=== PATIENT | female | born 1985 ===

== ENCOUNTER 2021-02-20 08:15 | Outpatient (RCR) | payer OTHER, SELFPAY ==
--- NOTE | 2021-01-28 12:59 | P.HPPSP_ITS ---
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 The patient reported a long history of depression since she was 5, with a prior admission as a teenager and later when she was 19 for suicidal attempt while intoxicated on alcohol. She complaints of episodes of depression characterized by depressed mood, anhedonia, lack of energy and feelings of worthlesness and sporadic episodes of increased restlesness and poor need of sleep but not over hypomania. Currently, she reported feeling more anxious with the current medications but no safety concerns.. Past Psychiatric History: As described on HPI, 1 prior admission as a teenager and at the age of 19. Follows outpatient services. Medical Evaluation Reviewed: No [facility] Medical History Arthritis Bone spur Bursitis Fibromyalgia Gestational diabetes Herniated disc PCOS (polycystic ovarian syndrome) Septal defect, heart Torn rotator cuff Family History: Mother had depression. Father had bipolar disorder. Social History: No biological siblings, her milestones were achieved at expected age, she was raised by her family and she had a good childhood, besides alleged trauma. She had poor school performance, later got her GED. She has alcohol problems since age 11 to 19 Substance History: Alcohol as described before as a teenager. She claims to be clean and sober for the last years Trauma History: as a child, not elaborated Meds/Allergies Allergies Allergies Allergy/AdvReac Type Severity Reaction Status Date / Time lactose Allergy Gastrointestinal Verified 01/28/21 13:04 Upset nortriptyline AdvReac Unknown Verified 01/28/21 13:04 Mental Status Exam Mental Status Exam Patient Appearance: Well Grooomed Patient Orientation: Person, Place, Time and Situation Level of Consciousness: Awake and Appropriate Patient Behavior: Appropriate Mood Description: Calm Affect Description: Appropriate Patient Cognition Impaired: No Ability to Follow Directions: Good Speech Pattern: Clear Memory Description: Intact Hallucinations: None Delusions: Not Present Thought Content: positive for Intact Depressive Symptoms: Increased Anxiety Judgement: Fair Assessment & Plan Assessment & Plan (1) Mood disorder: Status: Acute Code(s): F39 - Unspecified mood [affective] disorder Assessment and Plan: The patient is an adult female, on her last trimester with mood disorder and a remote history of alcohol use disorder, stable at this moment. Plan: Continue same treatment Certification I certify that partial hospital treatment is medically necessary due to the symptoms and problems resulting from the patient's mental illness and the failure to treat the patient at the partial hospital level of care would likely result in the patient requiring inpatient psychiatric care which could not be prevented at a less intensive level of care. Telehealth Telehealth Location of provider rendering services: practice address Location of patient: address on file Patient Identification confirmed using: Name, : Yes Telehealth method: video Patient verbally consented to treatment: Yes Patient verbally consented to billing insurance company: Yes Patient informed of any privacy concerns related to visit: No Time spent with patient (mins): 45
[2021-01-28 13:06] VITALS: BMI 49.4
--- NOTE | 2021-01-28 14:02 | PC.ADMIT ---
Patient is a 35 year old female who was referred to [facility] IOP by a spring encaser at [facility] where patient was previously admitted as patient is stepping down to a lower level of care for treatment. Patient is 8 months and reports increase in depression with passive SI (no plan or intent), increase in anxiety with panic attacks secondary to inability to cope with . Patient reports she has taken a KIMBERLY from her job d/t symptoms. Patient has a history of being in therapy starting at age 4. She reports history of inpatient hospitalizations and SA via overdose at ages 10, 12, 15, and 19. Patient also reports she has been diagnosed with gestational diabetes and was put on ASA as a preventative measure for pre-eclampsia. Patient reports that her OBGYN is aware of the medications she is currently prescribed. Patient also reports recent diagnosis of sleep apnea and has a c-pap machine which she is trying to get used to. Patient reports history of ETOH abuse however has been sober for 10 years. Patient reports trauma history. Patient identifies her , family and friends as supportive. Patient is alert and oriented x4. Presents with depressed mood, anxious affect. Denied SI at present. Patient gave verbal permission to email her a copy of her safety plan. She has the crisis numbers if needed. Patient reports taking medications as prescribed. Reports that [facility] put in the prescription wrong as she is suppose to take Seroquel 200 mg tab taking 1 and 1/2 tab (300 mg) at HS and will take an additional 100 mg PRN at HS for insomnia. Medications reconciled with patient and pharmacy. Will request records from [facility].
--- NOTE | 2021-02-04 08:38 | PC.NURSE ---
Received a message from pt from early this morning stating she again did not get any sleep last night. She asked if she would be able to see the med provider today. I then got a second message from pt saying she is going to try to get some sleep, and that if she doesn't show up, it means she is sleeping and that she is okay. I shared this with staff.
--- NOTE | 2021-02-05 14:10 | HO.PHPPROGNO ---
Subjective Subjective Date of Service: 02/05/21 Reason For Visit: Generalized Anxiety D/O, MDD Subjective Notes: Law Warning Medical Problems Affecting Mental Status: Yes (33 weeks , insomnia, which is contributing to anxiety sx. ) Interim History: Jaden reports that she is feeling fatigued, and finds herself dissociating due to being overtired . Reports feeling anxious. She reports that she is experiencing intrusive thoughts due to exhaustion and anxiety. Denies any safety concerns. She is taking multiple medications including celexa, vistaril, trazodone, Seroquel, clonidine. She is requesting an increase in Seroquel dose in order to help her fall asleep and stop intrusive thoughts. She reports that when she had an increase in Seroquel does fairly recently, it did help improve sleep and decrease anxiety /intrusive thoughts. A review of medications was completed with patient. She reports that since the Klonopin had been tapered down and discontinued, she has had some anxiety. She states this has increased as her has proceeded, and became more pronounced at 24 weeks gestation. She states that she had also been tapered down from Seroquel, and had been been taking 50 mg daily at 1 point. She reports that an outside provider had increased Seroquel to the 300 at bedtime with an additional 100 to be used if waking and unable to fall asleep later in the night. She states that this did help control symptoms for some time, but now she is feeling that her symptoms have been worsening. Medication Compliance: Yes Side effects from medications: No Attending Groups: Yes Review of Systems Constitutional: Reports difficulty sleeping ( Difficulty falling asleep and then staying asleep throughout the night.), Reports fatigue and Reports stops breathing during sleep ( Sleep apnea, recently began using CPAP. ) Eyes: Reports no additional eye complaints Reports Normal hearing present Cardiovascular: Reports no additional cardiovascular complaints Respiratory: Reports no additional respiratory complaints Reports Normal hearing present Psychiatric: Reports anxiety and Reports depression Endocrine: Reports fatigue Mental Status Exam Mental Status Exam Patient Appearance: Fatigued and Appropriate Patient Orientation: Person, Place, Time and Situation Level of Consciousness: Awake and Appropriate Patient Behavior: Appropriate and Cooperative Mood Description: Appropriate, Depressed and Anxious Affect Description: Appropriate and Anxious Patient Cognition Impaired: No Ability to Follow Directions: Excellent Speech Pattern: Clear Memory Description: Intact Hallucinations: None Delusions: Not Present Thought Process: Intact Thought Content: positive for Intact (reports having intrusive thoughts, attributes them to lack of sleep and increased anxiety. ) Depressive Symptoms: Increased Anxiety, Insomnia, Difficulty Sleeping and Increased Fatigue Judgement: Good Judgement and Insight: Judgment and insight appear grossly intact. Diagnostics Vital Signs (24Hr): Body Mass Index 49.4 Assessment & Plan Assessment & Plan (1) Mood disorder: Status: Acute Code(s): F39 - Unspecified mood [affective] disorder Assessment and Plan: Patient reports continued anxiety and poor sleep. Patient already has multiple medications in place, and is also 33 weeks at this time. She has asked for an increase in Seroquel dose, as she reports when dose was increased before it helped for a time improves sleep and decrease anxiety/intrusive thoughts. We discussed issues regarding and medication. She stated that she understood the risks and benefits regarding atypical antipsychotics use and dose increase. PLAN: Increase bedtime dose from 300 mg to 350 mg. Patient also already has additional 100 mg dose of Seroquel to use if she wakes during the night and is unable to sleep. Script for additional 50 mg dose Seroquel sent electronically to pharmacy. Obtain EKG, order sent. Will review QTC once obtained. Patient educated on: diagnosis, medication risk/benefits and therapeutic strategies Informed Consent: understands Reason for contiued partial hosp. stay Substantial Risk for: inability to function and med/psych decompensation Certification I certify that partial hospital treatment is medically necessary due to the symptoms and problems resulting from the patient's mental illness and the failure to treat the patient at the partial hospital level of care would likely result in the patient requiring inpatient psychiatric care which could not be prevented at a less intensive level of care. Greater than 50% of the session was spent on counseling and/or coordination of care Discharge Plan Discharge Attending provider: Gonsalo Boston Medications: New quetiapine [Seroquel] 50 mg tablet 50 mg PO BEDTIME Qty: 7 RF: 0 No Action clonidine HCl 0.1 mg Tablet 0.1 mg PO TID RF: 0 citalopram [Celexa] 40 mg Tablet 40 mg PO DAILY RF: 0 quetiapine [Seroquel] 200 mg Tablet 300 mg PO BEDTIME RF: 0 quetiapine [Seroquel] 200 mg Tablet 100 mg PO BEDTIME PRN (Reason: Insomnia) RF: 0 trazodone 100 mg Tablet 300 mg PO BEDTIME RF: 0 hydroxyzine pamoate [Vistaril] 25 mg Capsule 25 - 100 mg PO BEDTIME PRN (Reason: Insomnia) RF: 0 aspirin 81 mg Tablet 81 mg PO DAILY RF: 0 Telehealth Telehealth Location of provider rendering services: practice address Location of patient: address on file Patient Identification confirmed using: Name, : Yes Telehealth method: video Patient verbally consented to treatment: Yes Patient verbally consented to billing insurance company: Yes Patient informed of any privacy concerns related to visit: Yes Time spent with patient (mins): 15
--- NOTE | 2021-02-12 12:05 | HO.PHPPROGNO ---
Subjective Subjective Date of Service: 02/12/21 Reason For Visit: Generalized Anxiety D/O, MDD Subjective Notes: Law Warning Guardianship: No Medical Problems Affecting Mental Status: No Interim History: Jaden reports that overall she is doing okay, rates her mood at the lower end of medium . Denies any thoughts of self-harm, no safety concerns at this time. We discussed increase of Seroquel last week by 50 mg at bedtime per her request. She states that she does feel it is helping. Patient is requesting refills of Vistaril and the added Seroquel 50, that was added to her usual bedtime dose. This magnetic tape typewriter operator asked patient if she has had an opportunity to obtain an EKG. She states that she has not, but that she had an echo done 2 weeks ago, and was told it was fine. She will forward results of her recent echo to our program nurse tomorrow. Medication education and potential side effects were explained in detail to patient, regarding her concurrent use of Celexa, Seroquel, and Vistaril. She stated that she understood the risks and benefits. She does not have any other complaints today, she will be 34 weeks gestation of her tomorrow. She states that overall she does feel improvement since she entered program. Medication Compliance: Yes Side effects from medications: No Attending Groups: Yes Review of Systems Review of Systems Describes mood as lower end of medium. Reports some difficulty with sleeping. No concerns with fever, chills, weakness, or fatigue. Yes all other systems are reviewed and are negative Mental Status Exam Mental Status Exam Patient Appearance: Well Grooomed and Appropriate Patient Orientation: Person, Place and Situation Level of Consciousness: Awake and Appropriate Patient Behavior: Appropriate, Cooperative and Good Eye Contact Mood Description: Appropriate, Depressed and Anxious Affect Description: Appropriate and Depressed Patient Cognition Impaired: No Ability to Follow Directions: Excellent Speech Pattern: Clear, Appropriate and Spontaneous Speech Memory Description: Intact Hallucinations: None Delusions: Not Present Thought Process: Intact Thought Content: positive for Intact Depressive Symptoms: Increased Anxiety, Insomnia and Difficulty Sleeping Judgement: Good Diagnostics Vital Signs (24Hr): Body Mass Index 49.4 Assessment & Plan Assessment & Plan (1) Mood disorder: Status: Acute Code(s): F39 - Unspecified mood [affective] disorder Assessment and Plan: Refills for Seroquel 50 mg and Vistaril 25 mg, 1-4 at bedtime, sent to pharmacy. Discussed need to monitor QTC interval while on current medications reviewed with patient, patient states that she understands and will send echo results tomorrow. Will continue to follow up with patient as per protocol. Certification I certify that partial hospital treatment is medically necessary due to the symptoms and problems resulting from the patient's mental illness and the failure to treat the patient at the partial hospital level of care would likely result in the patient requiring inpatient psychiatric care which could not be prevented at a less intensive level of care. Greater than 50% of the session was spent on counseling and/or coordination of care Discharge Plan Discharge Attending provider: Gonsalo Boston Medications: New hydroxyzine HCl 25 mg tablet 25 mg PO BEDTIME MDD 100mg PRN (Reason: for anxiety, sleep) 14 Days Qty: 56 RF: 0 quetiapine 50 mg tablet 50 mg PO BEDTIME 14 Days Qty: 14 RF: 0 Discontinued hydroxyzine pamoate [Vistaril] 25 mg Capsule 25 - 100 mg PO BEDTIME PRN (Reason: Insomnia) RF: 0 No Action clonidine HCl 0.1 mg Tablet 0.1 mg PO TID RF: 0 citalopram [Celexa] 40 mg Tablet 40 mg PO DAILY RF: 0 quetiapine [Seroquel] 200 mg Tablet 300 mg PO BEDTIME RF: 0 quetiapine [Seroquel] 200 mg Tablet 100 mg PO BEDTIME PRN (Reason: Insomnia) RF: 0 trazodone 100 mg Tablet 300 mg PO BEDTIME RF: 0 aspirin 81 mg Tablet 81 mg PO DAILY RF: 0 Telehealth Telehealth Location of provider rendering services: practice address Location of patient: address on file Patient Identification confirmed using: Name, : Yes Telehealth method: video Patient verbally consented to treatment: Yes Patient verbally consented to billing insurance company: Yes Patient informed of any privacy concerns related to visit: Yes Time spent with patient (mins): 15
--- NOTE | 2021-02-12 14:23 | PC.NURSE ---
Patient has an EKG ordered as patient is on an antidepressant and antipsychotic medications. Patient reminded EKG orders are due. Patient stated she had an ECHO cardiogram done recently at [facility] and everything looked fine. Patient gave consent to obtain records from [facility]. I called the office and the office is closed today. I faxed the office today requesting the records. Patient also stated she can get the results online regarding the ECHO and email them to us. Patient later called and stated she could not get the information. Asked patient if she could get the EKG done at [facility] and educated patient about the importance of getting this done. Patient stated she was not able to get a ride at the time the EKG's were scheduled. I told patient that I could fax the orders to [facility] which is closer to patient's house and patient stated she does not like to drive into [place]. Patient to call her PCP to see if PCP could order the EKG. Patient stated she can not go without the medication.
--- NOTE | 2021-02-13 08:17 | PC.NURSE ---
After speaking with pt about aftercare options, at her request, I faxed a referral form for the DBT group at [facility] DBT group to Rachel Hardy.
--- NOTE | 2021-02-13 08:23 | PC.NURSE ---
Patient called and left voice mail message stating she called her PCP's office and has a EKG scheduled for Tuesday02/13/21 at 2:15 pm. I spoke to Jaden this morning and asked her if she would give her PCP's office our fax number to fax us the results and she agreed to do this. Xin Chen NP aware.
--- NOTE | 2021-02-13 08:24 | PM.EVENT ---
Event Note Date of Service: 02/13/21 Event Note: Received and reviewed results from ECHO completed by [facility] on 01/23/2021. 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 Results show normal biventricular size and systolic function. Normal left ventricular regional wall motion with an ejection fraction of 55 to 60%. No hemodynamically significant valve disease. Normal left ventricular diastolic function. Normal pulmonary artery systolic pressure. Patient also going to primary care provider today for EKG, with results to be faxed to this office.
--- NOTE | 2021-02-18 15:57 | PM.EVENT ---
Event Note Date of Service: 02/18/21 Event Note: Received the results from EKG performed on 02/13/2021 at 13:51. QTC interval equals 450.
--- NOTE | 2021-02-20 13:01 | PC.NURSE ---
Patient is scheduled to discharge from the program today. Reviewed patient medications with patient. Patient stated she takes Metformin 1,000 mg po BID with meals and takes a total of 450 mg of Seroquel QHS. Reports taking Seroquel 200 mg tab taking 1 and 1/2 tabs at HS with a 50 mg tab (dose 350 mg) then takes an additional 100 mg in the middle of the night. Medication Education provided. Patient denied any safety issues. feels ready for d/c.
--- NOTE | 2021-02-20 15:34 | PC.NURSE ---
I called and LM for pt's therapsit, Sara M[facility]quez at [facility]. I informed her of pt's successful discharge from [facility] today.
--- NOTE | 2021-02-20 15:34 | HO.PHPPROGNO ---
Subjective Subjective Date of Service: 02/20/21 Reason For Visit: Generalized Anxiety D/O, MDD Subjective Notes: Law Warning Guardianship: No Medical Problems Affecting Mental Status: Yes ( interfering with sleep, overall comfort) Interim History: Jaden describes her mood today as ?not great . She states that she had much difficulty sleeping last night, and only slept approximately 3 hours. She reports that the new dose of Seroquel worked for a little while, but then ?pooped out ?. Patient's due date is March 27. She says that she has seen her outpatient psych provider on February 25. We discussed current medication regimen. 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 She reported that she understood and was in agreement. She states that although she does continue with feelings of depression and anxiety, she does not feel unsafe, and does not believe that she would require inpatient level of care at this time. She says that she feels safe, and is not having any type of thoughts of harm to self or others. She did express frustration over her symptoms, especially the difficulty sleeping. We discussed recent EKG results, and relevant [place] regarding current medications. QTc in normal range. We discussed mental health concerns regarding these medications, and hormonal fluctuation that can occur . Patient was encouraged to speak about these issues and concerns with her outpatient provider. She stated that she would do so. Today's patient's last day in partial, and she feels ready to be discharged. Overall, she feels her symptoms have improved while participating in program and recent medication change of the added seroquel 50mg at bedtime. No refills needed at this time. Medication Compliance: Yes Side effects from medications: No Attending Groups: Yes Review of Systems Review of Systems Patient reports difficulty sleeping, states she is only receiving 3-4 hours of sleep per night. Yes all other systems are reviewed and are negative Constitutional: Reports no additional constitutional complaints Eyes: Reports no additional eye complaints Reports Normal hearing present Cardiovascular: Reports no additional cardiovascular complaints Gastrointestinal: Reports no additional gastrointestinal complaints Reports Normal hearing present Psychiatric: Reports anxiety and Reports depression Endocrine: Reports as per HPI (patient is diabetic) Mental Status Exam Mental Status Exam Narrative: Well-nourished, well-groomed female, in no apparent distress. Sitting up in chair, appropriate for encounter. Patient Appearance: Well Grooomed, Fatigued and Appropriate Patient Orientation: Person, Place, Time and Situation Level of Consciousness: Awake, Appropriate and Alert Patient Behavior: Appropriate and Cooperative Mood Description: Appropriate, Depressed and Anxious Affect Description: Appropriate, Depressed and Anxious Patient Cognition Impaired: No Ability to Follow Directions: Excellent Speech Pattern: Clear Memory Description: Intact Hallucinations: None Delusions: Not Present Thought Process: Intact, Goal Oriented and Linear Thought Content: positive for Intact and positive for Logical Depressive Symptoms: Increased Anxiety, Insomnia and Loss of Int. in Activity Judgement: Good Diagnostics Vital Signs (24Hr): Body Mass Index 49.4 Assessment & Plan Assessment & Plan (1) Mood disorder: Status: Acute Code(s): F39 - Unspecified mood [affective] disorder Assessment and Plan: Jaden is still experiencing dysphoria, but states that symptoms have improved over the past several weeks. She feels stable for discharge at this time. She is aware of resources available in community, and is already connected with an outpatient prescriber. She reports she does not need any refills of medications at this time. Patient educated on: diagnosis, medication risk/benefits and therapeutic strategies Informed Consent: understands Reason for contiued partial hosp. stay Substantial Risk for: stable for discharge Certification I certify that partial hospital treatment is medically necessary due to the symptoms and problems resulting from the patient's mental illness and the failure to treat the patient at the partial hospital level of care would likely result in the patient requiring inpatient psychiatric care which could not be prevented at a less intensive level of care. Greater than 50% of the session was spent on counseling and/or coordination of care Discharge Plan Discharge Attending provider: Gonsalo [place] Medications: New hydroxyzine HCl 25 mg tablet 25 mg PO BEDTIME MDD 100mg PRN (Reason: for anxiety, sleep) 14 Days Qty: 56 RF: 0 quetiapine 50 mg tablet 50 mg PO BEDTIME 14 Days Qty: 14 RF: 0 Discontinued hydroxyzine pamoate [Vistaril] 25 mg Capsule 25 - 100 mg PO BEDTIME PRN (Reason: Insomnia) RF: 0 No Action clonidine HCl 0.1 mg Tablet 0.1 mg PO TID RF: 0 citalopram [Celexa] 40 mg Tablet 40 mg PO DAILY RF: 0 quetiapine [Seroquel] 200 mg Tablet 300 mg PO BEDTIME RF: 0 quetiapine [Seroquel] 200 mg Tablet 100 mg PO BEDTIME PRN (Reason: Insomnia) RF: 0 trazodone 100 mg Tablet 300 mg PO BEDTIME RF: 0 aspirin 81 mg Tablet 81 mg PO DAILY RF: 0 Stand Alone Forms: Patient Portal Discharge page Telehealth Telehealth Location of provider rendering services: practice address Location of patient: address on file Patient Identification confirmed using: Name, : Yes Telehealth method: video Patient verbally consented to treatment: Yes Patient informed of any privacy concerns related to visit: Yes Time spent with patient (mins): 15
== END 2021-02-23 08:39 | disposition home or self-care (01) ==
LOC: HO.PHPA 08:15
PROVIDERS: Visit Provider Psychiatry & Neurology Psychiatry
DX: O99.343 Other mental disorders complicating pregnancy, third trimester (principal); F41.1 Generalized anxiety disorder; F39 Unspecified mood [affective] disorder; F32.9 Major depressive disorder, single episode, unspecified; O99.353 Diseases of the nervous system complicating pregnancy, third trimester; G47.00 Insomnia, unspecified; Z3A.33 33 weeks gestation of pregnancy; Z79.899 Other long term (current) drug therapy; Z87.74 Personal history of (corrected) congenital malformations of heart and circulatory system
CPT/HCPCS: 90791; 90853